=== PATIENT | male | born 1955 | race Caucasian/White ===

== ENCOUNTER 2017-06-24 15:01 | Emergency (ER) | payer OTHER ==
[~2017-06-24] VITALS: Ht 190.5 cm; Wt 131.0 kg
[~2017-06-24 15:01] MED LIST: ASPI81TA82 PO; BLOOD PRESSURE CUFF; LISI-363 PO; NITR.4 SL
[2017-06-24 15:11] VITALS: BP 213/132; PULSE 115; RESP 16; TEMP 98.2; O2SAT 97
[2017-06-24 15:41] VITALS: BP 193/117; PULSE 110; RESP 16; O2SAT 96
[2017-06-24] MEDS ORDERED: ASPI81CH7 CHEW (15:45)
[2017-06-24] MEDS ORDERED: LISINOPRIL 20 MG TAB PO ONE (16:15)
--- NOTE | 2017-06-24 16:17 | PD ---
HPI Chief Complaint: Hypertension Time Seen by Provider: 16:09 Travel History International Travel<30 days: No Contact w/Intl Traveler<30days: No Traveled to known affect area: No History of Present Illness HPI 61yo M with PMH of HTN noncompliant with medication here with c/o dizziness that started around 10am. [place] like he was unsteady on his feet but not dizzy when he lies down. Said he had similar symptoms when his blood pressure was elevated before. Denies any fever, visual changes, cough, chest pain, sob, n/v , abdominal pain, focal weakness or numbness. Pt has been out of his lisinopril 20mg for over a month. Pt has not seen a physician in years. PFSH Past Medical History Cardiovascular Problems: Yes High Cholesterol: Yes Diabetes: Yes Patient Takes Glucophage: No Diminished Hearing: No Genitourinary: Yes ( ) Hypertension: Yes (DOESN'T TAKE MEDS) Kidney Stones: Yes (2008) Musculoskeletal: Yes (OSTEOARTHRITIS MAKENNA. HIPS) Tetanus Vaccination: < 5 Years Past Surgical History Genitourinary Surgery: Yes (kidney stones removed) Thoracic Surgery: Yes (benign mass removed from left chest ) Tonsillectomy: Yes Family History Family Myocardial Infarction: Yes (BROTHER) Social History Alcohol Use: Yes (DAILY COCKTAILS) Tobacco Use: No Substance Use: No Allergies-Medications (Allergen,Severity, Reaction): Coded Allergies: oyster extract (Unverified Allergy, Intermediate, nausea and vomiting, ) Reported Meds & Prescriptions Reported Meds & Active Scripts Active Reported Aspirin Children's (Aspirin) 81 Mg Chew 81 Mg CHEW DAILY Review of Systems Except as stated in HPI: all other systems reviewed are Neg Physical Exam Narrative GENERAL: 61yo M not in distress. SKIN: Focused skin assessment warm/dry. HEAD: Atraumatic. Normocephalic. EYES: Pupils equal and round. EOMI. ENT: No nasal bleeding or discharge. Mucous membranes pink and moist. NECK: Trachea midline. No JVD. CARDIOVASCULAR: Regular rate and rhythm. No murmur appreciated. RESPIRATORY: No accessory muscle use. Clear to auscultation. Breath sounds equal bilaterally. GASTROINTESTINAL: Abdomen soft, non-tender, nondistended. MUSCULOSKELETAL: No obvious deformities. No clubbing. No cyanosis. No edema. NEUROLOGICAL: Awake and alert. No obvious cranial nerve deficits. Motor grossly within normal limits. Normal speech. Sensation intact. PSYCHIATRIC: Appropriate mood and affect; insight and judgment normal. Data Data Last Documented VS Vital Signs Date Time Temp Pulse Resp B/P (MAP) Pulse Ox O2 Delivery O2 Flow Rate FiO2 06/24/17 18:43 87 16 142/81 (101) 95 Room Air 06/24/17 15:11 98.2 Orders Orders Electrocardiogram (06/24/17 16:11) Basic Metabolic Panel (Bmp) (06/24/17 16:11) Complete Blood Count With Diff (06/24/17 16:11) Magnesium (Mg) (06/24/17 16:11) Troponin I (06/24/17 16:11) Ct Brain W/O Iv Contrast(Rout) (06/24/17 16:11) Orthostatic Vital Signs (06/24/17 16:11) Lisinopril (Prinivil) (06/24/17 16:15) Labetalol Inj (Trandate Inj) (06/24/17 17:45) Labs Laboratory Tests Test 06/24/17 16:25 White Blood Count 7.8 TH/MM3 Red Blood Count 4.68 MIL/MM3 Hemoglobin 15.7 GM/DL Hematocrit 45.7 % Mean Corpuscular Volume 97.5 FL Mean Corpuscular Hemoglobin 33.5 PG Mean Corpuscular Hemoglobin Concent 34.3 % Red Cell Distribution Width 12.6 % Platelet Count 266 TH/MM3 Mean Platelet Volume 7.5 FL Neutrophils (%) (Auto) 53.3 % Lymphocytes (%) (Auto) 28.3 % Monocytes (%) (Auto) 8.9 % Eosinophils (%) (Auto) 9.0 % Basophils (%) (Auto) 0.5 % Neutrophils # (Auto) 4.2 TH/MM3 Lymphocytes # (Auto) 2.2 TH/MM3 Monocytes # (Auto) 0.7 TH/MM3 Eosinophils # (Auto) 0.7 TH/MM3 Basophils # (Auto) 0.0 TH/MM3 CBC Comment DIFF FINAL Differential Comment Blood Urea Nitrogen 21 MG/DL Creatinine 1.30 MG/DL Random Glucose 130 MG/DL Calcium Level 9.2 MG/DL Magnesium Level 2.3 MG/DL Sodium Level 137 MEQ/L Potassium Level 3.7 MEQ/L Chloride Level 103 MEQ/L Carbon Dioxide Level 24.8 MEQ/L Anion Gap 9 MEQ/L Estimat Glomerular Filtration Rate 56 ML/MIN Troponin I LESS THAN 0.02 NG/ML MDM Medical Decision Making Medical Screen Exam Complete: Yes Emergency Medical Condition: Yes Interpretation(s) EKG: Sinus tachycardia at 101bpm. LAD. No ST segment elevation or depression. Differential Diagnosis Hypertensive emergency vs. HERVE vs. ICH Narrative Course 61yo M with uncontrolled blood pressure secondary to noncompliance here with c/ o dizziness and elevated blood pressure. Pt is mildly tachycardic at low 100s- 109bpm. No focal neurologic symptoms. Labs reviewed, no leukocytosis. BUN mildly elevated at 21. Creatinine 1.30. Troponin negative. CT brain negative. Pt given lisinopril 20mg PO. BP is still very high after lisinopril. Pt states he is not dizzy anymore. Pt ambulating in the ED with normal gait and no dizziness. Labetalol 20mg IV ordered. BP improved to 142/ 81. Pt wants to go home and said he will come back if anything worsens. He understands that it may have been a posterior TIA but does not want to stay for MRI or observation. Said he had similar symptoms when his blood pressure was elevated and he has no symptoms now. Encourage pt to follow up with primary care physician from the [place]. Strict return precautions given. Diagnosis Primary Impression: Elevated blood pressure reading Patient Instructions: General Instructions Departure Forms: Tests/Procedures Additional Instructions: Please follow up with your primary care physician in 2-3 days. Return to the ED if symptoms worsen. Med/Other Pt SpecificInfo: Prescription(s) given Scripts Lisinopril (Lisinopril) 20 Mg Tab 20 MG PO DAILY, #30 TAB 0 Refills Prov: Beth Wang 06/24/17 Disposition: 01 DISCHARGE HOME Condition: Stable Beth Wang Jun 24, 2017 16:17
[2017-06-24 16:40] LABS: AUTOMATED NEUTROPHIL # 4.2 TH/MM3 (1.8-7.7); BASOPHIL % 0.5 % (0.0-2.0); EOSINOPHIL # 0.7 TH/MM3 (0-0.4); HEMATOCRIT 45.7 % (39.0-51.0); HEMOGLOBIN 15.7 GM/DL (13.0-17.0); LYMPH % 28.3 % (9.0-44.0); LYMPHOCYTE # 2.2 TH/MM3 (1.0-4.8); MEAN CELL VOLUME 97.5 FL (80.0-100.0); MEAN CORPUSCULAR HEMOGLOBIN 33.5 PG (27.0-34.0); MEAN CORPUSCULAR HGB CONC 34.3 % (32.0-36.0); MEAN PLATELET VOLUME 7.5 FL (7.0-11.0); MONO % 8.9 % (0.0-8.0); MONOCYTE # 0.7 TH/MM3 (0-0.9); NEUT % 53.3 % (16.0-70.0); PLATELET COUNT 266 TH/MM3 (150-450); RED BLOOD COUNT 4.68 MIL/MM3 (4.50-5.90); RED CELL DISTRIBUTION WIDTH 12.6 % (11.6-17.2); WHITE BLOOD COUNT 7.8 TH/MM3 (4.0-11.0)
--- NOTE | 2017-06-24 16:46 | RADRPT ---
EXAM DATE/TIME: 06/24/2017 16:36 [facility] COMPARISON: No previous studies available for comparison. INDICATIONS : Dizziness. RADIATION DOSE: 63.83 CTDIvol (mGy) MEDICAL HISTORY : Hypertension. SURGICAL HISTORY : None. ENCOUNTER: Initial ACUITY: 1 day PAIN SCALE: 0/10 LOCATION: cranial TECHNIQUE: Multiple contiguous axial images were obtained of the head. Using automated exposure control and adj ustment of the mA and/or kV according to patient size, radiation dose was kept as low as reasonably a chievable to obtain optimal diagnostic quality images. DICOM format image data is available electro nically for review and comparison. FINDINGS: CEREBRUM: The ventricles are normal for age. No evidence of midline shift, mass lesion, hemorrhage or acute in farction. No extra-axial fluid collections are seen. POSTERIOR FOSSA: The cerebellum and brainstem are intact. The 4th ventricle is midline. The cerebellopontine angle i s unremarkable. EXTRACRANIAL: The visualized portion of the orbits is intact. SKULL: The calvaria is intact. No evidence of skull fracture. CONCLUSION: Negative noncontrast head CT. Will Gil MD on June 24, 2017 at 16:41 Board Certified Radiologist. This report was verified electronically.
[2017-06-24 16:50] LABS: CHLORIDE 103 MEQ/L (98-107); SODIUM (NA) 137 MEQ/L (136-145)
[2017-06-24 16:52] LABS: CALCIUM 9.2 MG/DL (8.5-10.1)
[2017-06-24 16:53] LABS: BICARBONATE 24.8 MEQ/L (21.0-32.0); BLOOD UREA NITROGEN 21 MG/DL (7-18); GLUCOSE,RANDOM 130 MG/DL (74-106); MAGNESIUM 2.3 MG/DL (1.5-2.5)
[2017-06-24 16:56] LABS: GLOMERULAR FILTRATION RATE 56 ML/MIN (>89)
[2017-06-24 17:01] LABS: TROPONIN I LESS THAN 0.02 NG/ML (0.02-0.05)
[2017-06-24 17:09] VITALS: BP_SYST 183; BP_SYST 191; BP_SYST 197; BP_DIAS 107; BP_DIAS 118; BP_DIAS 121; RESP 18; RESP 20
[2017-06-24] MEDS ORDERED: LABETALOL HCL 100 MG/20 ML VIAL IV PUSH ONE (17:45)
[2017-06-24 18:02] VITALS: BP 154/92; PULSE 94; RESP 18; O2SAT 94
[2017-06-24 18:43] VITALS: BP 142/81; PULSE 87; RESP 16; O2SAT 95
[2017-06-24] MEDS ORDERED: LISI-515 PO (18:51)
--- NOTE | 2017-06-26 00:58 | EKG ---
Date Performed: 06/24/2017 Time Performed: 16:23:27 PTAGE: 61 years EKG: SINUS TACHYCARDIA MARKED LEFT AXIS DEVIATION ABNORMAL ECG PREVIOUS TRACING : 02/18/2015 10.58 Compared to prior tracing, rate has increased DOCTOR: Kenrick Gomez Interpretating Date/Time 06/26/2017 00:57:16
== END 2017-06-24 19:09 | disposition home or self-care (01) ==
LOC: PHED 15:01
DX: I10 Essential (primary) hypertension (principal); E78.00 Pure hypercholesterolemia, unspecified; E11.9 Type 2 diabetes mellitus without complications; M19.90 Unspecified osteoarthritis, unspecified site; R94.31 Abnormal electrocardiogram [ECG] [EKG]; Z91.14 Patient's other noncompliance with medication regimen; Z87.442 Personal history of urinary calculi; Z79.82 Long term (current) use of aspirin
CPT/HCPCS: 70450; 80048; 83735; 84484; 85025; 93005; 96374

== ENCOUNTER 2017-07-06 16:53 | Emergency (ER) | payer OTHER ==
[~2017-07-06] VITALS: Ht 190.5 cm; Wt 132.0 kg
[~2017-07-06 16:53] MED LIST changes: +ASPI81CH7 CHEW; -ASPI81TA82 PO; -BLOOD PRESSURE CUFF; -LISI-363 PO; +LISI-515 PO; -NITR.4 SL
[2017-07-06 17:00] VITALS: BP 165/98; PULSE 80; RESP 18; TEMP 97.8; O2SAT 98
[2017-07-06] MEDS ORDERED: SODIUM CHLORIDE 0.9% FLUSH 10 ML FLUSH IV FLUSH PRN (17:15)
[2017-07-06] MEDS ORDERED: SODIUM CHLOR 0.9% 1000 ML INJ 1,000 ML IV SCH (17:15)
[2017-07-06] MEDS ORDERED: MORPHINE SULFATE 2 MG/ML INJ IV PUSH ONE ×2 (17:15→19:15)
[2017-07-06] MEDS ORDERED: KETOROLAC TROMETHAMINE 30 MG/ML (IVP) VIAL IVP ONE (17:15)
[2017-07-06] MEDS ORDERED: ONDANSETRON HCL 4 MG/2 ML VIAL IVP ONE (17:15)
--- NOTE | 2017-07-06 17:23 | PD ---
HPI Chief Complaint: Flank/Kidney Pain Time Seen by Provider: 17:10 Travel History International Travel<30 days: No Contact w/Intl Traveler<30days: No Traveled to known affect area: No History of Present Illness HPI 61-year-old male complains of left low quadrant abdominal pain nausea vomiting. Patient states that the symptoms started this afternoon. Patient states the pain severe sharp pain localized to left lower quadrant of the abdomen. Patient denies any pain radiation. Patient denies any fever chills. Patient states that he has intermittent nausea vomiting but no diarrhea. Patient denies any dysuria or frequency. Patient has history of kidney stone in the past. On a scale of 1-10 the pain is a 10. PFSH Past Medical History Cardiovascular Problems: Yes High Cholesterol: Yes Diabetes: No Patient Takes Glucophage: No Diminished Hearing: No Genitourinary: Yes ( ) Hypertension: Yes Kidney Stones: Yes (2008) Musculoskeletal: Yes (OSTEOARTHRITIS MAKENNA. HIPS) Influenza Vaccination: No Past Surgical History Genitourinary Surgery: Yes (kidney stones removed) Thoracic Surgery: Yes (benign mass removed from left chest ) Tonsillectomy: Yes Family History Family Myocardial Infarction: Yes (BROTHER) Social History Alcohol Use: Yes (DAILY COCKTAILS) Tobacco Use: No Substance Use: No Allergies-Medications (Allergen,Severity, Reaction): Coded Allergies: oyster extract (Unverified Allergy, Intermediate, nausea and vomiting, 03/13) Reported Meds & Prescriptions Reported Meds & Active Scripts Active Lisinopril 20 Mg Tab 20 Mg PO DAILY Reported Aspirin Children's (Aspirin) 81 Mg Chew 81 Mg CHEW DAILY Review of Systems General / Constitutional: No: Fever Eyes: No: Visual changes HENT: No: Headaches Cardiovascular: No: Chest Pain or Discomfort Respiratory: No: Shortness of Breath Gastrointestinal: Positive: Nausea, Vomiting, Abdominal Pain Genitourinary: No: Dysuria Musculoskeletal: No: Pain Skin: No Rash Neurologic: No: Weakness Psychiatric: No: Depression Endocrine: No: Polydipsia Hematologic/Lymphatic: No: Easy Bruising Physical Exam Narrative GENERAL: Well-nourished, well-developed patient. SKIN: Focused skin assessment warm/dry. HEAD: Normocephalic. EYES: No scleral icterus. No injection or drainage. NECK: Supple, trachea midline. No JVD or lymphadenopathy. CARDIOVASCULAR: Regular rate and rhythm without murmurs, gallops, or rubs. RESPIRATORY: Breath sounds equal bilaterally. No accessory muscle use. GASTROINTESTINAL: Abdomen soft, nondistended. Patient has moderate tenderness on palpation left low quadrant of the abdomen. No rebound tenderness. No mass. MUSCULOSKELETAL: No cyanosis, or edema. BACK: Nontender without obvious deformity. No CVA tenderness. Neurologic exam normal. Data Data Last Documented VS Vital Signs Date Time Temp Pulse Resp B/P (MAP) Pulse Ox O2 Delivery O2 Flow Rate FiO2 07/06/17 17:00 97.8 80 18 165/98 (120) 98 Orders Orders Basic Metabolic Panel (Bmp) (07/06/17 17:15) Urinalysis - C+S If Indicated (07/06/17 17:15) Iv Access Insert/Monitor (07/06/17 17:15) Ecg Monitoring (07/06/17 17:15) Oximetry (07/06/17 17:15) Ondansetron Inj (Zofran Inj) (07/06/17 17:15) Sodium Chlor 0.9% 1000 Ml Inj (Ns 1000 M (07/06/17 17:15) Sodium Chloride 0.9% Flush (Ns Flush) (07/06/17 17:15) Ketorolac Inj (Toradol Inj) (07/06/17 17:15) Morphine Inj (Morphine Inj) (07/06/17 17:15) MDM Medical Decision Making Medical Screen Exam Complete: Yes Emergency Medical Condition: Yes Differential Diagnosis Differential diagnosis including nephrolithiasis, pyelonephritis, colitis, UTI. Narrative Course 61-year-old male with left low quadrant abdominal pain, nausea vomiting. History of kidney stone in the past. Normal saline solution 1 25 cc an hour. Toradol 30 mg IV. Morphine 2 mg IV. Zofran 4 mg IV. Matheus Lowe MD Jul 06, 2017 17:23
[2017-07-06 17:25] VITALS: O2SAT 96
[2017-07-06 17:37] LABS: CALCIUM 9.2 MG/DL (8.5-10.1)
[2017-07-06 17:41] LABS: CREATININE 1.4 MG/DL (0.60-1.30)
--- NOTE | 2017-07-06 19:01 | RADRPT ---
EXAM DATE/TIME: 07/06/2017 18:38 [facility] COMPARISON: No previous studies available for comparison. INDICATIONS : Left flank pain, nausea, vomiting. ORAL CONTRAST: Oral contrast given RADIATION DOSE: 27.87 CTDIvol (mGy) ; Patient body habitus MEDICAL HISTORY : Cardiovascular disease. Hypercholesterolemia. Hypertension.Renal calculi 2008 SURGICAL HISTORY : Benign chest mass removed ENCOUNTER: Initial ACUITY: 1 day PAIN SCALE: 7/10 LOCATION: Left flank TECHNIQUE: Volumetric scanning of the abdomen and pelvis was performed. Using automated exposure control and ad justment of the mA and/or kV according to patient size, radiation dose was kept as low as reasonably achievable to obtain optimal diagnostic quality images. DICOM format image data is available electro nically for review and comparison. FINDINGS: LOWER LUNGS: The visualized lower lungs are clear. LIVER: Homogeneous density without lesion. There is no dilation of the biliary tree. No calcified gallston es. Gallbladder seems a little structure without wall thickening. SPLEEN: Normal size without lesion. PANCREAS: Within normal limits. KIDNEYS: Normal in size and shape. There is question is the low density abnormality in the cortex of the right kidney up to 1.7 cm in size. This requires further evaluation on an elective basis with either CT co ntrast of the kidneys or ultrasound. There are 3 punctate faint left kidney calyceal stones one in th e upper pole and 2 in the lower pole nonobstructive. There is no evidence hydronephrosis or hydrouret er. ADRENAL GLANDS: Within normal limits. VASCULAR: There is no aortic aneurysm. BOWEL/MESENTERY: The stomach, small bowel, and colon demonstrate no acute abnormality. There is no free intraperitone al air or fluid. There are uncomplicated diverticula in the descending and primarily sigmoid colon. ABDOMINAL WALL: Within normal limits. RETROPERITONEUM: There is no lymphadenopathy. BLADDER: No wall thickening or mass. REPRODUCTIVE: Within normal limits. INGUINAL: There is no lymphadenopathy or hernia. MUSCULOSKELETAL: Degenerative changes of the lumbar spine at L4-5 facet arthritic changes with a grade 1 spondylolisth esis L4 on L5 and mild localized spinal stenosis. Facet arthritic changes at L5-S1. CONCLUSION: 3 punctate left kidney calyceal nonobstructing stones one in the upper pole and 2 in the lower pole . 1.7 cm low density abnormality in the cortex mid to l ower pole of the right kidney indeterminate nonspecific. This requires further evaluation with ultras ound or contrast enhanced CT scan. Degenerative changes of lumbar spine most significant at L4-5 facet arthritic changes, grade 1 spinal listhesis L4 on L5, and localized spinal stenosis. Uncomplicated diverticuli of the descending and sigm oid colon Natan Rhoades MD on July 06, 2017 at 18:50 Board Certified Radiologist. This report was verified electronically.
[2017-07-06] MEDS ORDERED: ONDANSETRON HCL 4 MG/2 ML VIAL IV PUSH ONE (19:15)
--- NOTE | 2017-07-06 19:17 | PD ---
Physical Exam Time Seen by Provider: 19:[address] Lowe left this patient for me to check the results of the CT scan and make a disposition. Data Data Last Documented VS Vital Signs Date Time Temp Pulse Resp B/P (MAP) Pulse Ox O2 Delivery O2 Flow Rate FiO2 07/06/17 19:27 103 18 184/99 (127) 96 Room Air 07/06/17 17:00 97.8 Orders Orders Basic Metabolic Panel (Bmp) (07/06/17 17:15) Urinalysis - C+S If Indicated (07/06/17 17:15) Iv Access Insert/Monitor (07/06/17 17:15) Ecg Monitoring (07/06/17 17:15) Oximetry (07/06/17 17:15) Ondansetron Inj (Zofran Inj) (07/06/17 17:15) Sodium Chlor 0.9% 1000 Ml Inj (Ns 1000 M (07/06/17 17:15) Sodium Chloride 0.9% Flush (Ns Flush) (07/06/17 17:15) Ketorolac Inj (Toradol Inj) (07/06/17 17:15) Morphine Inj (Morphine Inj) (07/06/17 17:15) Ct Abd/Pel W/O Iv Contrast (07/06/17 17:54) Morphine Inj (Morphine Inj) (07/06/17 19:15) Ondansetron Inj (Zofran Inj) (07/06/17 19:15) Labs Laboratory Tests Test 07/06/17 17:19 07/06/17 19:00 Blood Urea Nitrogen 23 MG/DL Creatinine 1.40 MG/DL Random Glucose 170 MG/DL Calcium Level 9.2 MG/DL Sodium Level 140 MEQ/L Potassium Level 3.8 MEQ/L Chloride Level 108 MEQ/L Carbon Dioxide Level 22.0 MEQ/L Anion Gap 10 MEQ/L Estimat Glomerular Filtration Rate 51 ML/MIN Urine Collection Type CLEAN CATCH Urine Color YELLOW Urine Turbidity CLEAR Urine pH 5.0 Urine Specific [place] 1.020 Urine Protein NEG mg/dL Urine Glucose (UA) NEG mg/dL Urine Ketones NEG mg/dL Urine Occult Blood LARGE Urine Nitrite NEG Urine Bilirubin NEG Urine Leukocyte Esterase NEG Urine RBC 25-49 /hpf Urine WBC 0-2 /hpf Urine Squamous Epithelial Cells 0-5 /hpf Urine Mucus FEW /lpf Microscopic Urinalysis Comment CULT NOT INDICATED Urine Collection Time MDM Medical Record Reviewed: Yes Supervised Visit with ROXY: No Interpretation(s) The CT abdomen pelvis shows no cause for the patient's pain. There 3 are nonobstructing stones, punctate in size, in the upper pole and lower pole and lower pole of the kidney. There are uncomplicated diverticulitis in the descending and primarily in the sigmoid colon. Also noted are degenerative changes of the lumbar spine. The urine shows large amount of blood in the urine but is negative for infection. Differential Diagnosis Urinary stone, urinary tract infection, drug seeking behavior-unlikely, diverticulitis Narrative Course It is now 0 716 and the patient is complaining of more pain and some nausea. It is now 0 747 and the patient's pain is a 1/10. He will be discharged on prochlorperazine and Percocet. Needs to increase his liquid intake. Impression: Left ureteral stone. The Sudden onset of sharp pain in the location that the patient describes in the left flank and left UVJ area is consistent with a kidney stone. He may have passed the stone at the time of the CT scan. Nevertheless, the CT scan does not show the cause of the patient' s pain. Diagnosis Primary Impression: Left ureteral calculus Additional Instruction: As we discussed, do not drink alcohol or drive on the Percocet 5. The prochlorperazine is for nausea and this is as needed every 6 hours-1 tablet. Med/Other Pt SpecificInfo: Prescription(s) given Scripts Prochlorperazine Maleate (Prochlorperazine Maleate) 10 Mg Tab 10 MG PO Q6H Y for NAUSEA OR VOMITING, #30 TAB 0 Refills Prov: Mariano Burkett MD 07/06/17 Oxycodone-Acetaminophen (Percocet) 5-325 mg Tab 1-2 TAB PO Q4H Y for PAIN, #30 TAB 0 Refills Prov: Mariano Burkett MD 07/06/17 Disposition: 01 DISCHARGE HOME Condition: Stable Mariano Burkett MD Jul 06, 2017 19:17
[2017-07-06 19:21] LABS: BILIRUBIN, URINE NEG (NEG); BLOOD, URINE LARGE (NEG); GLUCOSE,URINE NEG (NEG); KETONE, URINE NEG (NEG); NITRITE,URINE NEG (NEG); URINE LEUKOCYTE ESTERASE NEG (NEG)
[2017-07-06 19:27] VITALS: BP 184/99; PULSE 103; RESP 18; O2SAT 96
[2017-07-06] MEDS ORDERED: PERC5TAB12 PO (19:44)
[2017-07-06] MEDS ORDERED: PROC10TA PO (19:44)
[2017-07-06 19:45] LABS: MUCUS URINE FEW /lpf (OCC); SQUAMOUS EPITHELIAL CELL URINE 0-5 /hpf (0-5); URINE COLOR YELLOW (YELLW/STRAW)
[2017-07-06 19:46] LABS: WBC, URINE 0-2 /hpf (0-5)
== END 2017-07-06 20:13 | disposition home or self-care (01) ==
LOC: PHED 16:53
DX: N20.2 Calculus of kidney with calculus of ureter (principal); R11.2 Nausea with vomiting, unspecified; R10.32 Left lower quadrant pain; I10 Essential (primary) hypertension; M16.0 Bilateral primary osteoarthritis of hip; Z87.442 Personal history of urinary calculi
CPT/HCPCS: 74176; 80048; 81001; 96361; 96374; 96375; 99284; J1885; J2270; J2405; J7030